=== PATIENT | female | born 1995 | race Caucasian/White ===

== ENCOUNTER 2021-01-23 16:15 | Emergency (ER) | payer MEDICAID ==
[2021-01-23 16:43] VITALS: BP 110/48
[2021-01-23] MEDS ORDERED: LACTATED RINGERS 1,000 ML IV ONE (17:18)
[2021-01-23] MEDS ORDERED: diphenhydrAMINE 50 MG/ML VIAL IV ONE (17:18)
[2021-01-23] MEDS ORDERED: METOCLOPRAMIDE 10 MG/2 ML INJ IV ONE (17:18)
--- NOTE | 2021-01-23 17:24 | Emergency Department Report ---
ED General Adult HPI - General Chief complaint: Weakness Stated complaint: WEAKNESS/8 WKS PREG Time Seen by Provider: 01/23/21 17:18 Source: patient Mode of arrival: Ambulatory Limitations: No Limitations - History of Present Illness Initial comments: 25-year-old female presenting at 8 weeks gestation (confirmed by ultrasound recently) presenting for evaluation of generalized weakness. She states over the past few days she has not really been able to eat and has been persistently vomiting. Denies abdominal pain vaginal bleeding or diarrhea. Denies cough or fever. Symptoms are severe nothing makes better or worse. - Related Data Previous Rx's Medication Instructions Recorded Last Taken Type Famotidine [Pepcid] 40 mg PO QHS #30 tablet 10/16/13 Unknown Rx Omeprazole [Prilosec] 40 mg PO QDAY #30 capsule. 10/16/13 Unknown Rx Ondansetron [Zofran] 4 mg PO Q6HR PRN #12 tablet 10/16/13 Unknown Rx Metoclopramide [Reglan] 10 mg PO QID PRN #20 tab 01/23/21 Unknown Rx Allergies Allergy/AdvReac Type Severity Reaction Status Date / Time No Known Allergies Allergy Verified 04/20/13 04:52 ED Review of Systems ROS: Stated complaint: WEAKNESS/8 WKS PREG Other details as noted in HPI Comment: All other systems reviewed and negative Gastrointestinal: as per HPI ED Past Medical Hx - Past Medical History Hx Hypertension: No Hx Congestive Heart Failure: No Hx Diabetes: No Hx Deep Vein Thrombosis: No Hx Renal Disease: No Hx Sickle Cell Disease: No Hx Seizures: No Hx Asthma: No Hx COPD: No Hx HIV: No Additional medical history: thyroid - Surgical History Past Surgical History?: No - Social History Smoking Status: Never Smoker Substance Use Type: None - Medications Home Medications: Home Medications Medication Instructions Recorded Confirmed Last Taken Type Famotidine [Pepcid] 40 mg PO QHS #30 tablet 10/16/13 Unknown Rx Omeprazole [Prilosec] 40 mg PO QDAY #30 capsule. 10/16/13 Unknown Rx Ondansetron [Zofran] 4 mg PO Q6HR PRN #12 tablet 10/16/13 Unknown Rx Metoclopramide [Reglan] 10 mg PO QID PRN #20 tab 01/23/21 Unknown Rx ED Physical Exam - General Limitations: No Limitations General appearance: alert, in no apparent distress - Head Head exam: Present: atraumatic, normocephalic - Eye Eye exam: Present: normal appearance - ENT ENT exam: Present: mucous membranes moist - Neck Neck exam: Present: normal inspection - Respiratory Respiratory exam: Present: normal lung sounds bilaterally. Absent: respiratory distress - Cardiovascular Cardiovascular Exam: Present: regular rate, normal rhythm. Absent: systolic murmur, diastolic murmur, rubs, gallop - GI/Abdominal GI/Abdominal exam: Present: soft, normal bowel sounds - Extremities Exam Extremities exam: Present: normal inspection - Back Exam Back exam: Present: normal inspection - Neurological Exam Neurological exam: Present: alert, oriented X3 - Psychiatric Psychiatric exam: Present: normal affect, normal mood - Skin Skin exam: Present: warm, dry, intact, normal color. Absent: rash ED Course Vital Signs 01/23/21 16:41 Temperature 98.5 F Pulse Rate 65 Respiratory 18 Rate Blood Pressure 110/48 [Right] O2 Sat by Pulse 99 Oximetry ED Medical Decision Making - Lab Data Result diagrams: 01/23/21 17:21 01/23/21 17:21 Lab Results 01/23/21 01/23/21 01/23/21 Range/Units 17:21 17:21 17:38 WBC 6.7 (4.5-11.0) K/mm3 RBC 4.72 (3.65-5.03) M/mm3 Hgb 13.2 (10.1-14.3) gm/dl Hct 38.9 (30.3-42.9) % MCV 83 (79-97) fl MCH 28 (28-32) pg MCHC 34 (30-34) % RDW 15.1 (13.2-15.2) % Plt Count 254 (140-440) K/mm3 Lymph % (Auto) 21.6 (13.4-35.0) % Woodson % (Auto) 4.0 (0.0-7.3) % Eos % (Auto) 0.8 (0.0-4.3) % Baso % (Auto) 1.2 (0.0-1.8) % Lymph # (Auto) 1.5 (1.2-5.4) K/mm3 Woodson # (Auto) 0.3 (0.0-0.8) K/mm3 Eos # (Auto) 0.1 (0.0-0.4) K/mm3 Baso # (Auto) 0.1 (0.0-0.1) K/mm3 Seg Neutrophils % 72.4 H (40.0-70.0) % Seg Neutrophils # 4.9 (1.8-7.7) K/mm3 Sodium 136 L (137-145) mmol/L Potassium 4.0 (3.6-5.0) mmol/L Chloride 104.1 (98-107) mmol/L Carbon Dioxide 19 L (22-30) mmol/L Anion Gap 17 mmol/L BUN 9 (7-17) mg/dL Creatinine 0.6 (0.6-1.2) mg/dL Estimated GFR > 60 ml/min BUN/Creatinine Ratio 15 % Glucose 73 (65-100) mg/dL Calcium 9.4 (8.4-10.2) mg/dL Urine Color Yellow (Yellow) Urine Turbidity Clear (Clear) Urine pH 6.0 (5.0-7.0) Ur Specific Louann 1.025 (1.003-1.030) Urine Protein 30 mg/dl (Negative) mg/dL Urine Glucose (UA) Neg (Negative) mg/dL Urine Ketones 80 (Negative) mg/dL Urine Blood Mod (Negative) Urine Nitrite Neg (Negative) Urine Bilirubin Neg (Negative) Urine Urobilinogen 4.0 (<2.0) mg/dL Ur Leukocyte Esterase Neg (Negative) Urine WBC (Auto) 2.0 (0.0-6.0) /HPF Urine RBC (Auto) 44.0 (0.0-6.0) /HPF U Epithel Cells (Auto) 1.0 (0-13.0) /HPF Urine Bacteria (Auto) 1+ (Negative) /HPF Urine Mucus 2+ /HPF - Medical Decision Making Patient presents with complaints of generalized weakness secondary to nausea and vomiting in ongoing for a few days. No abdominal pain or vaginal bleeding. Her exam is benign. Differentials include dehydration, hyperemesis. Labs, urinalysis will be obtained and patient be given IV fluids Reglan and Benadryl. Labs are overall stable other than bicarb at 19, urinalysis notes hematuria, patient denies vaginal bleeding, no evidence of infection. Resting comfortably at this time, no vomiting noted. Will prescribe nausea medicine for home and refer to [facility] for follow-up. - Differential Diagnosis Hyperemesis, dehydration, UTI Critical care attestation.: If time is entered above; I have spent that time in minutes in the direct care of this critically ill patient, excluding procedure time. ED Disposition Clinical Impression: Vomiting affecting Disposition: - TO HOME OR SELFCARE Is pt being admited?: No Condition: Good Instructions: Hyperemesis Gravidarum Prescriptions: Metoclopramide [Reglan] 10 mg PO QID PRN #20 tab PRN Reason: NAUSEA/VOMITING Referrals: PRIMARY CARE,MD [Primary Care Provider] - 3-5 Days GREGORY BANUELOS MD [Staff Physician] - 3-5 Days Time of Disposition: 18:35
[2021-01-23 17:50] LABS: Basophils # (Auto) 0.1 K/mm3 (0.0-0.1); Basophils % (Auto) 1.2 % (0.0-1.8); Eosinophils # (Auto) 0.1 K/mm3 (0.0-0.4); Eosinophils % (Auto) 0.8 % (0.0-4.3); Hematocrit 38.9 % (30.3-42.9); Hemoglobin 13.2 gm/dl (10.1-14.3); Lymphocytes # (Auto) 1.5 K/mm3 (1.2-5.4); Lymphocytes % (Auto) 21.6 % (13.4-35.0); Mean Corpuscular HGB Conc 34 % (30-34); Mean Corpuscular Volume 83 fl (79-97); Monocytes # (Auto) 0.3 K/mm3 (0.0-0.8); Platelet Count 254 K/mm3 (140-440); Red Blood Count 4.72 M/mm3 (3.65-5.03); Red Cell Distribution Width 15.1 % (13.2-15.2)
[2021-01-23 17:55] LABS: Bacteria,Urine 1+ /HPF (Negative); Bilirubin,Urine NEG (Negative); Blood,Urine MOD (Negative); Color,Urine Yellow (Yellow); Mucus,Urine 2+ /HPF
[2021-01-23 18:05] LABS: Blood Urea Nitrogen 9 mg/dL (7-17); Calcium 9.4 mg/dL (8.4-10.2); Hemolysis Index 6
[2021-01-23 18:10] LABS: BUN/Creatinine Ratio 15
== END 2021-01-23 19:02 | disposition home or self-care (01) ==
LOC: ED 16:15
DX: O21.9 Vomiting of pregnancy, unspecified (principal); Z3A.08 8 weeks gestation of pregnancy; Z79.899 Other long term (current) drug therapy
CPT/HCPCS: 36415; 80048; 81001; 85025; 96361; 96374; 96375; 99283; J1200; J2765; J7120

== ENCOUNTER 2021-09-17 21:51 | Emergency (ER) | payer MEDICAID ==
[2021-09-17 22:37] VITALS: BP 108/63
[2021-09-17 23:02] LABS: Basophils # (Auto) 0.2 K/mm3 (0.0-0.1); Basophils % (Auto) 1.7 % (0.0-1.8); Eosinophils # (Auto) 0.2 K/mm3 (0.0-0.4); Eosinophils % (Auto) 1.5 % (0.0-4.3); Hematocrit 37.2 % (30.3-42.9); Hemoglobin 12.5 gm/dl (10.1-14.3); Lymphocytes # (Auto) 1.9 K/mm3 (1.2-5.4); Lymphocytes % (Auto) 16.9 % (13.4-35.0); Mean Corpuscular HGB Conc 34 % (30-34); Mean Corpuscular Volume 81 fl (79-97); Monocytes # (Auto) 0.5 K/mm3 (0.0-0.8); Monocytes % (Auto) 4.9 % (0.0-7.3); Platelet Count 246 K/mm3 (140-440); Red Blood Count 4.59 M/mm3 (3.65-5.03); Red Cell Distribution Width 14.6 % (13.2-15.2)
[2021-09-17 23:29] LABS: Alanine Aminotransferase 31 units/L (7-56); Albumin 4.3 g/dL (3.9-5); Blood Urea Nitrogen 22 mg/dL (7-17); Calcium 9.9 mg/dL (8.4-10.2); Hemolysis Index 6
[2021-09-17 23:39] LABS: BUN/Creatinine Ratio 37
== END 2021-09-17 22:35 | disposition home or self-care (01) ==
LOC: ED 21:51
DX: R10.9 Unspecified abdominal pain (principal); Z53.21 Procedure and treatment not carried out due to patient leaving prior to being seen by health care provider
CPT/HCPCS: 36415; 80053; 84703; 85025

== ENCOUNTER 2021-10-04 08:33 | Emergency (ER) | payer MEDICAID ==
[2021-10-04] MEDS ORDERED: ONDANSETRON 4 MG/2 ML INJ IV ONE (09:59)
[2021-10-04] MEDS ORDERED: MORPHINE 4 MG/1 ML INJ IV ONE (09:59)
[2021-10-04 10:24] LABS: Bacteria,Urine 1+ /HPF (Negative); Bilirubin,Urine MOD (Negative); Blood,Urine NEG (Negative); Color,Urine Amber (Yellow); Mucus,Urine 2+ /HPF; Protein,Urine <15 mg/dL mg/dL (Negative)
[2021-10-04 10:26] LABS: Ictotest,Urine Positive (Negative)
[2021-10-04 11:01] LABS: Hematocrit 38.4 % (30.3-42.9); Hemoglobin 12.8 gm/dl (10.1-14.3); Mean Corpuscular HGB Conc 33 % (30-34); Mean Corpuscular Volume 80 fl (79-97); Platelet Count 274 K/mm3 (140-440); Red Blood Count 4.81 M/mm3 (3.65-5.03); Red Cell Distribution Width 14.9 % (13.2-15.2)
--- NOTE | 2021-10-04 11:01 | Ultrasound Report ---
ULTRASOUND ABDOMEN, COMPLETE INDICATION: ruq pain, n/v. COMPARISON: None available. FINDINGS: Pancreas: Normal. Abdominal Aorta: Normal. IVC: Normal. Liver: Normal.Normal hepatopedal blood flow in the main portal vein. Gallbladder: Multiple calcified gallstones Bile ducts: Normal. Common Bile Duct measures 3 mm. Right Kidney: Normal. Left Kidney: Normal. Spleen: Normal. Free fluid: None. Additional Findings: None. IMPRESSION: 1. Cholelithiasis without sonographic evidence for cholecystitis Signer Name: Nahun Larose MD Signed: 10/04/2021 10:56 AM Workstation Name: [id number]
[2021-10-04 11:59] LABS: Alanine Aminotransferase 383 units/L (7-56); Albumin 4.4 g/dL (3.9-5); Blood Urea Nitrogen 14 mg/dL (7-17); Calcium 9.9 mg/dL (8.4-10.2); Hemolysis Index 0
[2021-10-04 12:01] LABS: BUN/Creatinine Ratio 35
[2021-10-04 13:52] LABS: Hepatitis B Surface Antigen Non-Reactive (Negative); Hepatitis C Virus Antibody Non-Reactive (NonReactive)
--- NOTE | 2021-10-04 14:21 | Emergency Department Report ---
ED Abdominal Pain HPI - General Chief Complaint: Abdominal Pain Stated Complaint: UPPER ABDOMINAL PAIN Time Seen by Provider: 10/04/21 09:57 Source: patient Mode of arrival: Ambulatory Limitations: No Limitations - History of Present Illness Initial Comments: 25-year-old female past medical history of hypothyroidism presents to the emergency department for evaluation of right upper quadrant pain since Tuesday with nausea vomiting. She denies fever, diarrhea, dysuria, and vaginal discharge. She states that she is 1 month status post vaginal and had "liver problems" at the end of her . MD Complaint: abdominal pain -: Gradual, days(s) (1) Location: RUQ Radiation: none Migration to: no migration Severity scale (0 -10): 8 Quality: aching Consistency: constant Worsens With: eating Associated Symptoms: nausea, vomiting. denies: diarrhea, fever, chills, dysuria, hematemesis, hematochezia, melena, hematuria, syncope - Related Data LMP (females 10-50): last week Previous Rx's Medication Instructions Recorded Last Taken Type Famotidine [Pepcid] 40 mg PO QHS #30 tablet 10/16/13 Unknown Rx Omeprazole [Prilosec] 40 mg PO QDAY #30 capsule.dr 10/16/13 Unknown Rx Ondansetron [Zofran] 4 mg PO Q6HR PRN #12 tablet 10/16/13 Unknown Rx Metoclopramide [Reglan] 10 mg PO QID PRN #20 tab 01/23/21 Unknown Rx Naproxen [Naprosyn] 500 mg PO BID PRN #14 tab 10/04/21 Unknown Rx Ondansetron [Zofran Odt] 4 mg PO Q8HR PRN #12 tab.rapdis 10/04/21 Unknown Rx Allergies Allergy/AdvReac Type Severity Reaction Status Date / Time No Known Allergies Allergy Verified 10/04/21 09:15 ED Review of Systems ROS: Stated complaint: UPPER ABDOMINAL PAIN Other details as noted in HPI Comment: All other systems reviewed and negative Constitutional: denies: chills, fever Respiratory: denies: shortness of breath, SOB with exertion, SOB at rest Cardiovascular: denies: chest pain, palpitations, dyspnea on exertion, orthopnea, edema, syncope, paroxysmal nocturnal dyspnea Gastrointestinal: abdominal pain, nausea, vomiting. denies: diarrhea, hematemesis, melena, hematochezia Genitourinary: denies: urgency, dysuria, frequency, hematuria, discharge, abnormal menses, dyspareunia Musculoskeletal: denies: back pain Skin: denies: rash, lesions, change in color, change in hair/nails, pruritus Neurological: denies: headache, weakness, numbness, paresthesias, confusion, abnormal gait, vertigo ED Past Medical Hx - Past Medical History Hx Hypertension: No Hx Congestive Heart Failure: No Hx Diabetes: No Hx Deep Vein Thrombosis: No Hx Renal Disease: No Hx Sickle Cell Disease: No Hx Seizures: No Hx Asthma: No Hx COPD: No Hx HIV: No Additional medical history: thyroid - Social History Smoking Status: Former Smoker - Medications Home Medications: Home Medications Medication Instructions Recorded Confirmed Last Taken Type Famotidine [Pepcid] 40 mg PO QHS #30 tablet 10/16/13 Unknown Rx Omeprazole [Prilosec] 40 mg PO QDAY #30 capsule.dr 10/16/13 Unknown Rx Ondansetron [Zofran] 4 mg PO Q6HR PRN #12 tablet 10/16/13 Unknown Rx Metoclopramide [Reglan] 10 mg PO QID PRN #20 tab 01/23/21 Unknown Rx Naproxen [Naprosyn] 500 mg PO BID PRN #14 tab 10/04/21 Unknown Rx Ondansetron [Zofran Odt] 4 mg PO Q8HR PRN #12 tab.rapdis 10/04/21 Unknown Rx ED Physical Exam - General Limitations: No Limitations General appearance: alert, in no apparent distress - Head Head exam: Present: atraumatic, normocephalic - Eye Eye exam: Present: normal appearance. Absent: scleral icterus, conjunctival injection - Neck Neck exam: Present: normal inspection - Respiratory Respiratory exam: Present: normal lung sounds bilaterally. Absent: respiratory distress, wheezes, rales, rhonchi, stridor, chest wall tenderness, accessory muscle use - Cardiovascular Cardiovascular Exam: Present: bradycardia, normal heart sounds - GI/Abdominal GI/Abdominal exam: Present: soft, tenderness (Right upper quadrant), normal bowel sounds. Absent: distended, guarding, rebound, rigid - Extremities Exam Extremities exam: Present: normal inspection, full ROM, normal capillary refill. Absent: tenderness, pedal edema, joint swelling, calf tenderness - Back Exam Back exam: Present: normal inspection. Absent: tenderness, CVA tenderness (R), CVA tenderness (L) - Neurological Exam Neurological exam: Present: alert, oriented X3, CN II-XII intact, normal gait, reflexes normal. Absent: motor sensory deficit - Psychiatric Psychiatric exam: Present: normal affect, normal mood - Skin Skin exam: Present: warm, dry, intact, normal color ED Course Vital Signs 10/04/21 09:14 Temperature 98.9 F Pulse Rate 59 L Respiratory 16 Rate Blood Pressure 121/51 O2 Sat by Pulse 99 Oximetry - Reevaluation(s) Reevaluation #1: 10/04/21 14:19 Abdominal pain and nausea resolved. Patient states that she feels much better. ED Medical Decision Making - Lab Data Result diagrams: 10/04/21 10:14 10/04/21 10:14 - Radiology Data Radiology results: report reviewed Abdominal ultrasound: FINDINGS: Pancreas: Normal. Abdominal Aorta: Normal. IVC: Normal. Liver: Normal.Normal hepatopedal blood flow in the main portal vein. Gallbladder: Multiple calcified gallstones Bile ducts: Normal. Common Bile Duct measures 3 mm. Right Kidney: Normal. Left Kidney: Normal. Spleen: Normal. Free fluid: None. Additional Findings: None. IMPRESSION: 1. Cholelithiasis without sonographic evidence for cholecystitis - Medical Decision Making 25-year-old female past medical history of hypothyroidism presents to the emergency department for evaluation of right upper quadrant pain since Tuesday with nausea vomiting. She denies fever, diarrhea, dysuria, and vaginal discharge. She states that she is 1 month status post vaginal and had "liver problems" at the end of her . Patient noted to have elevated LFTs on labs, but ultrasound revealed cholelithiasis without evidence of cholecystitis and common bile duct normal in size and low suspicion for choledocholithiasis. Acute hepatitis panel negative. Pain and nausea resolved after medication, and patient states that she feels much better. Patient will be discharged home to follow-up with GI and general surgery for further evaluation and management. Is understanding of and agreement with plan of care. Critical care attestation.: If time is entered above; I have spent that time in minutes in the direct care of this critically ill patient, excluding procedure time. ED Disposition Clinical Impression: Gallstones, Elevated LFTs Disposition: HOME / SELF CARE / HOMELESS Is pt being admited?: No Does the pt Need Aspirin: No Instructions: Liver Function Tests, Cholelithiasis, [id number], Abdominal Pain (ED) Additional Instructions: Take medications as prescribed. Follow-up with GI (stomach doctor) as soon as possible for further evaluation and management of elevated liver function tests and gallstones. Return to the emergency department for any concerning symptoms. Prescriptions: Naproxen [Naprosyn] 500 mg PO BID PRN #14 tab PRN Reason: Pain, Moderate (4-6) Ondansetron [Zofran Odt] 4 mg PO Q8HR PRN #12 tab.rapdis PRN Reason: Nausea And Vomiting Referrals: EUGENIE BARBOSA MD [Primary Care Provider] - 3-5 Days CATHY RIBEIRO MD [Referring] - 3-5 Days NANDO ROJAS MD [Staff Physician] - 3-5 Days Time of Disposition: 14:20
[2021-10-04 14:53] VITALS: BP 122/64
== END 2021-10-04 14:56 | disposition home or self-care (01) ==
LOC: ED 08:33
DX: K80.80 Other cholelithiasis without obstruction (principal); R79.89 Other specified abnormal findings of blood chemistry; Z87.891 Personal history of nicotine dependence
CPT/HCPCS: 36415; 76700; 80053; 80074; 81001; 83690; 84703; 85027; 96374; 96375; 99284; J2270; J2405